=== PATIENT | male | born 1995 | race Caucasian/White ===

== ENCOUNTER 2018-02-19 20:06 | Emergency (ER) | payer BC, OTHER ==
[~2018-02-19] VITALS: Ht 185.4 cm; Wt 89.6 kg
[2018-02-19] MEDS ORDERED: LORAZEPAM 1 MG TAB PO ONE (21:15)
[2018-02-19] MEDS ORDERED: PROZAC20 MG PO (21:54)
[2018-02-19] MEDS ORDERED: BUSPIRONE HCL5 MG PO (21:59)
[2018-02-19 22:08] VITALS: BP 150/76
== END 2018-02-19 22:05 | disposition home or self-care (01) ==
LOC: ER 20:06 → FSED 22:05
DX: F42.9 Obsessive-compulsive disorder, unspecified (principal); F32.0 Major depressive disorder, single episode, mild; F84.0 Autistic disorder
CPT/HCPCS: 99282

== ENCOUNTER 2018-03-01 18:54 | Emergency (ER) | payer BC, OTHER ==
[~2018-03-01] VITALS: Ht 182.9 cm; Wt 86.2 kg
[~2018-03-01 18:54] MED LIST: BUSPIRONE HCL5 MG PO; PROZAC20 MG PO
--- OUTSIDE RECORDS SUMMARY | 2018-03-01 18:56 | XMS REPORT | Continuity of Care Document ---
Author Author [facility] Organization [facility] Address [address] [place] [address] Phone Unavailable Care Team Providers Care Intern Product Marketing Manager Name Role Phone GISELLE HYDE (NON STAFF) PCP Insurance Providers Guarantor Linden Rothman Address [address] [address] Email [email or web address] Payer [facility] Policy Number [id number] Subscriber's Name Mica Rothman Relationship 32 Mother Group Number [id number] Group Name [facility], Effective Date 13 Advance Directives Directive Response Recorded Date/Time Does the patient have an advance directive? No 07/23/15 12:35pm If yes, is advance directive on file with [facility]? No 07/23/15 12:35pm If not on file with [facility] will patient provide a copy? No 07/23/15 12:35pm Do you have a Directive to Physician? No 02/19/18 8:15pm Do you have a Medical Power of Wind Site Manager? No 02/19/18 8:15pm Do you have an out of hospital Do Not Resuscitate Order? No 02/19/18 8:15pm Do you have any special needs we should be aware of? No 02/19/18 8:15pm Do you have a support person here with you today? Yes 02/19/18 8:15pm Did patient receive Notice of Privacy Practices? Yes 02/19/18 8:15pm Did patient receive patient rights and responsibilities? Yes 02/19/18 8:15pm Problems No problem information available. Medications Current Home Medications Medication Dose Units Route Directions Days Qty Instructions Start Date Buspirone Hcl 5 Mg Tablet 7.5 Mg Oral Twice A Day 60 Tab 02/19/18 Fluoxetine Hcl (Prozac) 20 Mg Capsule 20 Mg Oral Daily 30 Tab 02/19 Social History Smoking Status Start Date Stop Date Never Smoker Hospital Discharge Instructions No hospital discharge instruction information available. Plan of Care Discharge Date 02/19/18 10:05pm Disposition HOME, SELF-CARE Condition at Discharge Improved Instructions/Education Provided Depression Obsessive-Compulsive Disorder Prescriptions See Medication Section Referrals GISELLE HYDE (NON STAFF) Address: [address] [place] [address] [address] [place] [address] Therapist - keep current appt MINH HANLEY MD Address: [address] [facility] [address] [place] [address] Additional Instructions/Education Please call to schedule follow up with Psychiatrist to manage medications and titrate to appropriate doses. Keep your appt with therapist in 2 weeks. Functional Status No functional status information available. Allergies, Adverse Reactions, Alerts No allergy information available. Immunizations No immunization information available. Vital Signs Acute Vital Signs Vital Response Date/Time Pulse Pulse Rate (adult) 85 bpm (60 - 90) 02/19/2018 10:08pm Respiratory Rate 18 bpm (12 - 24) 02/19/2018 10:08pm Blood Pressure 150/76 mm Hg 02/19/2018 10:08pm Height 6 ft 1 in 02/19/2018 8:10pm Weight 197.44 lb 02/19/2018 8:10pm Body Mass Index 26.0 kg/m^2 02/19/2018 8:10pm Results No relevant diagnostic test, laboratory data and/or discharge summary information available. Procedures No procedure information available. Encounters Encounter Location Arrival/Admit Date Discharge/Depart Date Attending Provider Departed Emergency Room [facility] 02/19/18 8:06pm 10:05pm ANDIE RIBEIRO MD
[2018-03-01] MEDS ORDERED: LORAZEPAM INJ 2 MG/ML VIAL INJ STA (19:26)
[2018-03-01 19:51] LABS: BASOPHILS % 0.2 % (0.0-1.0); EOSINOPHILS # (AUTO) 0.1 (0.0-0.4); EOSINOPHILS % 0.9 % (0.0-6.0); HEMATOCRIT 45.3 % (38.2-49.6); HEMOGLOBIN 16.3 g/dL (14.0-18.0); LYMPHOCYTES # (AUTO) 2.3 (1.0-3.2); LYMPHOCYTES % 22.6 % (18.0-39.1); MEAN CORPUSCULAR HEMOGLOBIN 32.9 pg (28-32); MEAN CORPUSCULAR VOLUME 91.3 fL (81-99); MONOCYTES # (AUTO) 0.9 (0.2-0.8); MONOCYTES % 8.8 % (4.4-11.3); NEUTROPHILS # (AUTO) 6.8 (2.1-6.9); NEUTROPHILS % 67.1 % (38.7-80.0); PLATELET COUNT 217 x10e3/uL (140-360); RED BLOOD COUNT 4.96 x10e6/uL (4.3-5.7); RED CELL DISTRIBUTION WIDTH 11.8 % (11.7-14.4)
[2018-03-01 20:08] LABS: ACETAMINOPHEN < 3 ug/mL (10-30); ALANINE AMINOTRANSFERASE 12 IU/L (0-55); ALBUMIN 4.1 g/dL (3.5-5.0); ALBUMIN/GLOBULIN RATIO 1.9 (0.8-2.0); ALKALINE PHOSPHATASE 62 IU/L (40-150); ANION GAP 16.9 mmol/L (8-16); BLOOD UREA NITROGEN 14 mg/dL (7-26); BUN/CREATININE RATIO 11 (6-25); CALCIUM 9.2 mg/dL (8.4-10.2); CARBON DIOXIDE 21 mmol/L (22-29); CHLORIDE 108 mmol/L (98-107); CREATININE, SERUM 1.29 mg/dL (0.72-1.25); EST GLOMERULAR FILTRATION RATE > 60 ML/MIN (60-); GLUCOSE 102 mg/dL (74-118); POTASSIUM 3.9 mmol/L (3.5-5.1); SALICYLATE < 5.0 mg/dL (0-30); SODIUM 142 mmol/L (136-145)
[2018-03-01 21:52] LABS: AMPHETAMINES SCREEN,URINE NEGATIVE (NEGATIVE); BENZODIAZEPINES SCREEN,URINE NEGATIVE (NEGATIVE); CLARITY,URINE SL CLOUDY (CLEAR); COLOR,URINE YELLOW (YELLOW); KETONES,URINE NEGATIVE (NEGATIVE); LEUKOCYTE ESTERASE ,URINE NEGATIVE (NEGATIVE); NITRITE,URINE NEGATIVE (NEGATIVE); PHENCYCLIDINE SCREEN,URINE NEGATIVE (NEGATIVE); PROTEIN,URINE DIPSTICK NEGATIVE (NEGATIVE)
[2018-03-01 21:53] LABS: BILIRUBIN,URINE NEGATIVE (NEGATIVE); URINE UROBILINOGEN 1 mg/dL (0.2 - 1)
[2018-03-01 22:05] LABS: AMORPHOUS SEDIMENT,URINE FEW (FEW); MUCUS,URINE RARE (RARE); RBC,URINE 0-5 /HPF (0-5); WBC,URINE (MAN) 0-5 /HPF (0-5)
[2018-03-01 23:07] LABS: CREATINE KINASE 121 IU/L (30-200)
--- NOTE | 2018-03-01 23:31 | Diagnostic Imaging Report ---
EXAM: CHEST 2 VIEWS, PA and lateral INDICATION: Suicidal tendencies COMPARISON: None FINDINGS: LINES/TUBES: None LUNGS: No consolidations or edema. PLEURA: No effusions or pneumothorax. HEART AND MEDIASTINUM: Normal size and contour. BONES AND SOFT TISSUES: No acute findings. IMPRESSION: No acute thoracic abnormality. Signed by: Dr. Elli Mullen M.D. on 03/01/2018 11:27 PM
== END 2018-03-02 01:27 | disposition home or self-care (01) ==
LOC: ER 18:54
DX: F32.1 Major depressive disorder, single episode, moderate (principal); R45.851 Suicidal ideations
CPT/HCPCS: 36415; 71046; 80053; 80307; 80320; 80329 ×2; 81001; 82550; 82553; 84484; 85025; 93005; 99283; J2060